=== PATIENT | female | born 1985 | race Caucasian/White ===

== ENCOUNTER 2017-12-30 19:22 | Emergency (ER) | payer OTHER ==
[2017-12-30] MEDS: morphine 4 MG/ML VIAL IV (20:09)
[2017-12-30] MEDS: ONDANSETRON 4 MG INJ IV (20:09)
[2017-12-30 20:11] LABS: HEMATOCRIT 42.6 % (37.0-47.0); HEMOGLOBIN 13.5 g/dl (12.0-16.0); MEAN CORPUSCULAR HEMOGLOBIN 25.8 pg (29.0-33.0); MEAN CORPUSCULAR HGB CONC 31.7 g/dl (32.0-37.0); MEAN CORPUSCULAR VOLUME 81.3 fl (82.0-101.0); MEAN PLATELET VOLUME 8.9 fl (7.4-10.4); PLATELET COUNT 313 10^3/UL (140-415); RED BLOOD COUNT 5.24 10^6/ul (4.20-5.40); RED CELL DISTRIBUTION WIDTH 14.6 % (11.5-14.5)
[2017-12-30 20:11] LABS: WHITE BLOOD COUNT 11.6 10^3/ul (4.8-10.8)
[2017-12-30 20:17] LABS: ADD MAN DIFF? YES; POSITIVE DIFF @See below
[2017-12-30 20:21] LABS: ADD UMIC NO; UR ASCORBIC ACID NEGATIVE (NEGATIVE); UR BILIRUBIN (Dip) NEGATIVE (NEGATIVE); UR BLOOD (Dip) NEGATIVE (NEGATIVE); UR CLARITY SLIGHTLY CLOUDY (CLEAR); UR COLOR YELLOW (YELLOW); UR GLUCOSE (Dip) NEGATIVE (NEGATIVE); UR KETONES (Dip) NEGATIVE (NEGATIVE); UR LEUKOCYTE ESTERASE (Dip) NEGATIVE Leu/ul (NEGATIVE); UR NITRITE (Dip) NEGATIVE (NEGATIVE); UR RBC 2 /HPF (0-5); UR SPECIFIC GRAVITY (Dip) 1.019 (1.003-1.030); UR SQUAMOUS EPITHELIAL CELL FEW /HPF (FEW); UR TOTAL PROTEIN (Dip) NEGATIVE (NEGATIVE); UR UROBILINOGEN (Dip) NEGATIVE (NEGATIVE); UR WBC 3 /HPF (0-5)
[2017-12-30 20:22] LABS: ALANINE AMINOTRANSFERASE 30 IU/L (13-69); ALBUMIN 4.2 g/dl (3.3-4.9); ALKALINE PHOSPHATASE 77 IU/L (42-121); ANION GAP 8 (5-13); ASPARTATE AMINO TRANSFERASE 27 IU/L (15-46); BILIRUBIN,INDIRECT 0.4 mg/dl (0-1.1); BILIRUBIN,TOTAL 0.4 mg/dl (0.2-1.3); BLOOD UREA NITROGEN 16 mg/dl (7-20); CALCIUM 9.1 mg/dl (8.4-10.2); CARBON DIOXIDE 26 mmol/L (21-31); CHLORIDE 107 mmol/L (97-110); CREATININE 0.55 mg/dl (0.44-1.00); Estimated GFR > 60 mL/min (>60); GLUCOSE 106 mg/dl (70-220); LIPASE 108 U/L (23-300); SODIUM 141 mmol/L (135-144); TOTAL PROTEIN 8.4 g/dl (6.1-8.1)
[2017-12-30 20:33] LABS: TROPONIN-I < 0.012 ng/ml (0.000-0.120)
[2017-12-30 20:45] LABS: BASOPHIL #M 0.1 10^3/ul (0.0-0.0); BASOPHILS % (M) 1 % (0-2); EOSINOPHILS % (M) 2 % (0-7); LYMPHOCYTES #M 2.9 10^3/ul (0.8-2.9); LYMPHOCYTES % (M) 25 % (15-51); MONOCYTES % (M) 9 % (0-11); PLATELET ESTIMATE NORMAL; REACTIVE LYMPHOCYTES #M 0.1 10^3/ul (0.0-0.0); REACTIVE LYMPHOCYTES% (M) 1 % (0-0); SEGMENTED NEUTROPHILS (M) % 62 % (39-77); SMUDGE%M 9 % (0-0)
== END 2017-12-30 22:06 | disposition home or self-care (01) ==
LOC: FTE 19:22
DX: R10.11 Right upper quadrant pain (principal); R06.02 Shortness of breath; R07.9 Chest pain, unspecified
CPT/HCPCS: 36415; 71045; 76705; 80053; 81001; 81003; 81025; 83690; 84484; 85025; 93005; 96374; 96375; 99285-25

== ENCOUNTER 2018-02-05 03:07 | Emergency (ER) | payer OTHER | END 2018-02-05 05:15 | disposition home or self-care (01) | LOC: FTE 03:07 | DX: J32.9 Chronic sinusitis, unspecified (principal); J40 Bronchitis, not specified as acute or chronic; J03.90 Acute tonsillitis, unspecified | CPT/HCPCS: 99283; Z7502 ==

== ENCOUNTER 2018-04-26 15:13 | Emergency (ER) | payer OTHER ==
[2018-04-26] MEDS: IBUPROFEN 600 MG TAB PO ×2 (16:04)
== END 2018-04-26 17:35 | disposition home or self-care (01) ==
LOC: FTE 15:13
DX: M77.32 Calcaneal spur, left foot (principal)
CPT/HCPCS: 73610; 73630-LT; 81025; 99283-25